=== PATIENT | female | born 1980 | race Caucasian/White ===

== ENCOUNTER → 2016-06-03 | Outpatient (CLI) | payer BC ==
--- NOTE | 2016-06-03 08:51 | US ---
EXAMINATION: Right upper quadrant ultrasound HISTORY: Pain COMPARISON: None TECHNIQUE: Grayscale and color Doppler images obtained of the right upper quadrant. FINDINGS: The visualized pancreas appears normal. The liver is normal in contour and echogenicity wi thout a focal hepatic mass. The right kidney measures 11.2 cm [id number] without evidence of hydro nephrosis. The gallbladder wall thickness is normal. No pericholecystic fluid or shadowing gallstone s. The common bile duct measures 3 mm. Sonographic Arthur sign is negative. IMPRESSION: Unremarkable right upper quadrant ultrasound.
== END ==
LOC: MW.US 08:09
PROVIDERS: ATTEND Surgery
DX: R19.7 Diarrhea, unspecified (principal); R10.11 Right upper quadrant pain
CPT/HCPCS: 76705; 76705-26

== ENCOUNTER → 2016-06-07 | Outpatient (CLI) | payer BC ==
--- NOTE | 2016-06-07 13:26 | NM ---
EXAMINATION: Nuclear medicine hepatobiliary study (HIDA) with cholecystokinin (calculation of gallbl adder ejection fraction for function). HISTORY: The area. PROCEDURE: Following intravenous administration of 3.6 mCi of technetium 99m Choletec, dynamic images were ob tained up to one-hour post injection. This is followed by slow intravenous administration of 1.9 mcg of CCK and additional dynamic images were obtained. Gallbladder ejection fraction is calculated. FINDINGS: The initial dynamic images demonstrates clearance of the tracer from the blood pool with the prompt tracer uptake by the liver. By 10 minutes tracer activity is noted in the gallbladder. The post CCK images demonstrates optimal contraction of the gallbladder with ejection fraction of 81 percent (nor mal is equal or more than 35%). Tracer activity is noted in the small intestine following CCK admini stration. IMPRESSION: 1. Patent cystic and common bile ducts. Normal liver function. 2. Normal gallbladder ejection fraction following CCK administration ( 81 %; normal equal or more th an 35%).
== END ==
LOC: MW.NM 11:32
PROVIDERS: ATTEND Surgery
DX: R19.7 Diarrhea, unspecified (principal); R10.9 Unspecified abdominal pain
CPT/HCPCS: 78227; A9537; J2805

== ENCOUNTER → 2016-06-08 | Outpatient (CLI) | payer BC ==
[2016-06-08 09:21] LABS: CHLORIDE,CL 109 mmol/L (98-110); SODIUM,NA 138 mmol/L (136-146)
== END ==
LOC: MW.CHIM 08:32
PROVIDERS: ATTEND Surgery
DX: R19.7 Diarrhea, unspecified (principal); R10.9 Unspecified abdominal pain
CPT/HCPCS: 36415; 80053; 80076; 82784; 83516; 84439; 84443; 84481; 85025; 85652; 86140

== ENCOUNTER → 2016-06-10 | Outpatient (CLI) | payer BC ==
[~2016-06-10] MED LIST: Iopamidol 755 Mg/ML 100 ML Bottle IVPUSH STA
--- NOTE | 2016-06-10 16:42 | PCM.SN ---
- Free Text/Narrative Note: Notified by nursing sup that they are unable to obtain PIV access for imaging studies. 20g PIV was successfully started to Lt inner wrist. IV flushes with ease.
--- NOTE | 2016-06-13 18:43 | CT ---
EXAM DATE: 06/10/16 PATIENT'S AGE: 36 Patient: SABINE ATKINSON Facility: [place], [place] Site . Site : [id number] Study: CT Abdomen/Pelvis W/ and W/O Cont [id number]/2017 4:56:51 PM Ordering Physician: Minoo King Final Report: Indication: Unspecified abdominal pain. Nausea, diarrhea, 6 months of vomiting. Technique: 3 mm noncontrast axial imaging has been performed through the abdomen and pelvis after oral contrast. This is followed by 3 mm axial imaging through the abdomen and pelvis after nonionic IV contrast. Sagittal and coronal reconstructions have been obtained. Findings: The lung bases are free of infiltrates. The liver, spleen, pancreas, gallbladder , and bilateral adrenal glands are within normal limits. The kidneys demonstrate symmetric enhancement bilaterally. No hydronephrosis is identified bilaterally. No kidney stones or ureteric stones are identified. Small retroperitoneal lymph nodes are identified without significant lymphadenopathy. The iliac otoniel chain demonstrates no significant lymphadenopathy. Patient status post hysterectomy. Bilateral residual ovaries are identified. In the right ovary there is a 2.9 cm cyst and within the left ovary there is a 2.6 cm cyst. Along the posterior and right pelvis there is some mild stranding of the fat in a somewhat linear distribution. This extends up to the posterior aspect of the right ovary. This is favored to be postoperative from the prior hysterectomy. There are surgical clips in the midline pelvis. There is some scattered diverticula of the distal colon. No significant wall thickening is seen. Remaining colon has a moderate amount of residual contrast and fecal material. There is no evidence for bowel obstruction. The appendix is within normal limits. The small bowel is unremarkable. Impression: 1. There are postsurgical changes from hysterectomy. There is some stranding of the posterior and right pelvic fat extending toward the right ovary which is favored to be postsurgical. 2. There is no evidence for bowel obstruction. No significant free fluid is seen. The appendix is within normal limits. 3. Bilateral ovarian cysts are identified with the largest being 2.9 cm on the right. 4. The remaining upper abdominal organ survey is within normal limits. No abnormal fluid collections are seen. Dictated by Wilian Love MD @ Jun 11 2016 12:24PM (Electronic Signature) Report Signed by Proxy and Original Signed Document filed in the Medical Record. SONG
== END ==
LOC: MW.DI 13:52
PROVIDERS: ATTEND Internal Medicine
DX: R10.9 Unspecified abdominal pain (principal)
CPT/HCPCS: 74178; Q9967; 36410

== ENCOUNTER → 2016-07-18 | Outpatient (CLI) | payer BC | END | disposition home or self-care (01) | LOC: MW.CHIM 07:53 | PROVIDERS: ATTEND Internal Medicine | DX: R10.9 Unspecified abdominal pain (principal); R19.4 Change in bowel habit | CPT/HCPCS: 82710 ==

== ENCOUNTER → 2016-08-04 | Outpatient (CLI) | payer BC | END | disposition home or self-care (01) | LOC: MW.CHIM 15:43 | PROVIDERS: ATTEND Internal Medicine | DX: Z83.49 Family history of other endocrine, nutritional and metabolic diseases (principal) | CPT/HCPCS: 36415; 83520; 86376; 86800 ==

== ENCOUNTER 2021-05-11 14:58 | Emergency (ER) | payer BC ==
[2021-05-11] MEDS ORDERED: Sodium Chloride 0.9% 1,000 ML IV ONE (15:03)
[2021-05-11 16:00] LABS: BLOOD UREA NITROGEN,BUN 12 mg/dL (7.0-18.0); CHLORIDE,CL 105 mmol/L (98-107); GLUCOSE RANDOM 96 mg/dL (74-106); LIPASE 63 U/L (73-393); POTASSIUM,K 3.2 mmol/L (3.5-5.1); SODIUM,NA 138 mmol/L (136-145)
[2021-05-11 17:04] VITALS: BP 101/55; PULSE 83
== END 2021-05-11 17:12 | disposition home or self-care (01) ==
LOC: MW.ED 14:58
DX: K52.9 Noninfective gastroenteritis and colitis, unspecified (principal); E66.9 Obesity, unspecified; Z68.33 Body mass index [BMI] 33.0-33.9, adult; Z88.8 Allergy status to other drugs, medicaments and biological substances; Z86.16 Personal history of COVID-19
CPT/HCPCS: 36415; 71045; 80053; 81003; 83690; 85025; 99284; J7030